=== PATIENT | male | born 1985 | race Caucasian/White ===

== ENCOUNTER 2018-01-25 07:54 | Emergency (ER) | payer OTHER ==
[~2018-01-25] VITALS: Ht 182.9 cm; Wt 111.1 kg
[2018-01-25] MEDS ORDERED: ESCI10 PO (08:21)
== END 2018-01-25 09:15 | disposition home or self-care (01) ==
LOC: ER 07:54
DX: Z48.00 Encounter for change or removal of nonsurgical wound dressing (principal); Z88.2 Allergy status to sulfonamides
CPT/HCPCS: 99282